=== PATIENT | female | born 1945 ===

== ENCOUNTER → 2023-05-17 10:28 | Outpatient (REF) | payer MEDICARE, SELFPAY | LOC: HWRAD 10:28 | PROVIDERS: ATTENDING PHYSICIAN Physician Assistant | DX: K57.92 Diverticulitis of intestine, part unspecified, without perforation or abscess without bleeding (principal) | CPT/HCPCS: 74177; Q9967 ==

== ENCOUNTER 2024-12-21 09:45 | Emergency (ER) | payer MEDICARE, SELFPAY ==
[2024-12-21 09:50] VITALS: BP 113/88
[2024-12-21 10:44] VITALS: BP 153/95; BMI 27.4
--- NOTE | 2024-12-21 10:54 | ED.GENMED ---
History of Present Illness
General
Chief Complaint: Post Operative Problem(s)
Source: patient
Exam Limitations: none
Time Seen by Provider: 12/21/24 10:20
Nursing documentation reviewed up to this point in time: agreed with
History of Present Illness
History of Present Illness:
Patient is a 79-year-old female currently postop day #2 from left total knee replacement who presents to the emergency department for IV removal. Patient states that she had uncomplicated left total knee replacement on , 12/19/2024 at
[facility]. She was discharged home yesterday however did not change out of her sweatshirt. This morning, when she changed her close, she noticed that her IV was still in place on her right forearm. She was unable to get in touch with anyone from
[facility].\\
She states that she initially went to an urgent care and was told that they could not remove the IV and referred her to the emergency department for further care. Patient denies any pain, swelling, or redness around IV site.
No other concerns today.
Review of Systems
Review of Systems
Allergies reviewed?: Yes
All Other Systems: ROS reviewed and negative except as documented in HPI and ROS
Phy Exam
Physical Exam
Physical Exam:
Vitals: Patient's vital signs are stable. Afebrile
General: Patient is well appearing, no acute distress
Skin: Warm and dry, no rashes or lesions
Head: Normocephalic, atraumatic
Throat: Protecting airway
Neck: Normal ROM, no cervical spine tenderness
Cardiac: Regular rate
Pulm: No apparent respiratory distress
Abdomen: Nondistended
Extremities: 20-gauge peripheral IV in place on the right ventral forearm. No surrounding erythema or warmth. 2+ palpable right radial pulse with normal capillary refill. Left lower extremity with postop bandage of knee.
Neuro: Grossly intact
Psychiatric: Normal affect.
Course
Vital Signs
Initial and Last Documented VS:
Initial Vital Signs
Temp Pulse Resp BP Pulse Ox
98.2 F 74 16 113/88 99
12/21/24 09:50 12/21/24 09:50 12/21/24 09:50 12/21/24 09:50 12/21/24 09:50
Last Documented Vital Signs
Temp Pulse Resp BP Pulse Ox
97.6 F 82 16 153/95 99
12/21/24 10:44 12/21/24 10:44 12/21/24 10:44 12/21/24 10:44 12/21/24 10:56
MDM/Problems Addressed
Differential Diagnosis Includes:
Not limited to: IV catheter in place
MDM/Problems Addressed:
79-year-old female postop day 2 from left total knee replacement presenting with peripheral IV in place. She was accidentally discharged from surgical center without IV removal and did not notice until today. Vitals and physical exam as above.
There is a 20-gauge peripheral IV catheter in place on the right ventral forearm. I did remove this without incident. Pressure bandage applied. No surrounding erythema, warmth, or evidence of cellulitis. Right upper extremity neurovascularly
intact.
Patient stable for discharge home with continued postop management as per orthopedics. Return precautions discussed
Chronic conditions affecting care:
Postop day 2 from left total knee replacement
Acute Exacerbation and/or Progression of Chronic Illness:
N/A
*Pulse Oximetry
SaO2: 99
Oxygen Mode of Delivery: Room air
Patient hypoxic: no
*EKG
Interpreted by ED Provider?: NA
*Wood Heel Back Liner Interpretation
Rate: Wood Heel Back Liner- N/A
*Critical Care Note
Total Time (30-74mins, 75-104mins- exclusive of procedures): Not Applicable
ED Attending Note
-
Portions of this chart may have been created with voice recognition software.� Occasional wrong word or��sound alike� substitutions may have occurred due to the inherent limitations of voice recognition software.
Discharge Plan
Departure
Patient Disposition: Home (Routine Discharge)
Date of Disposition: 12/21/24
Time of Disposition: 10:42
Patient with high blood pressure during this ER visit?: No
Condition: Good
Discharge Problem:
Encounter for IV removal
Activity Restrictions/Additional Instructions:
The IV in your right arm was removed today in the emergency department. Please keep pressure bandage on for the next 2 hours.
Continue to follow postoperative instructions and take all medications as prescribed.
Follow-up with orthopedics for continued postoperative management
Monitor your symptoms closely and return to the emergency department any acute worsening/new symptoms or any symptoms worrisome to you
Interventions
Interventions:
*Risk Screen - Suicide Last Done: 12/21/24 09:50
*General Assessment Last Done: 12/21/24 09:50
*Neglect/Abuse Screening Last Done: 12/21/24 10:44
*ED- Fall Risk Assessment Last Done: 12/21/24 10:44
*ED COVID-19 Vaccine History Last Done: 12/21/24 09:50
*Nursing Disposition Last Done: 12/21/24 10:47
ED-Skin Assessment Last Done: 12/21/24 10:44
Discharge Date and Time
Discharge Date/Time: 12/21/24 10:51
Print Language: ARABIC
== END 2024-12-21 10:51 | disposition home or self-care (01) ==
LOC: EMR 09:45
PROVIDERS: EMERGENCY PHYSICIAN Emergency Medicine
DX: Z45.2 Encounter for adjustment and management of vascular access device (principal); Z96.652 Presence of left artificial knee joint
CPT/HCPCS: 99282

== ENCOUNTER → 2025-02-17 19:06 | Outpatient (REF) | payer MEDICARE, SELFPAY | LOC: MRI 3T 19:06 | PROVIDERS: ATTENDING PHYSICIAN Obstetrics & Gynecology | DX: Z91.89 Other specified personal risk factors, not elsewhere classified (principal) | CPT/HCPCS: 77049; A9585 ==

== ENCOUNTER → 2025-03-12 12:37 | Outpatient (REF) | payer MEDICARE, SELFPAY | LOC: WDC 12:37 | PROVIDERS: ATTENDING PHYSICIAN Obstetrics & Gynecology | DX: Z12.31 Encounter for screening mammogram for malignant neoplasm of breast (principal) | CPT/HCPCS: 77063; 77067 ==

== ENCOUNTER → 2025-03-21 14:34 | Outpatient (REF) | payer MEDICARE, SELFPAY | LOC: WDC 14:34 | PROVIDERS: ATTENDING PHYSICIAN Obstetrics & Gynecology | DX: R92.8 Other abnormal and inconclusive findings on diagnostic imaging of breast (principal) | CPT/HCPCS: 76642 ==